=== PATIENT | male | born 1970 | race Caucasian/White ===

== ENCOUNTER 2017-05-21 12:58 | Inpatient (IN) | payer OTHER ==
[2017-05-21] MEDS ORDERED: SUCCINYLCHOLINE CHLORIDE 200 MG/10 ML VIAL IVP ONE (13:10)
[2017-05-21] MEDS ORDERED: ETOMIDATE 40 MG/20 ML INJ IVP ONE ×2 (13:11→13:18)
[2017-05-21 13:12] LABS: % IMMATURE GRANULYOCYTES 1.1 % (0.0-1.1); ADD DIFF? NO; ADD MORPH? NO; ADD SCAN? NO; ATYPICAL LYMPHOCYTE FLAG 0 (0-99); FRAGMENT RBC FLAG 0 (0-99); HEMATOCRIT 42.6 % (40.0-51.0); HEMOGLOBIN 14.6 g/dL (13.7-17.5); LEFT SHIFT FLG 0 (0-99); LIPEMIA HEMOLYSIS FLAG 90 (0-99); MEAN CELL HEMOGLOBIN 30.1 pg (27.9-34.1); MEAN CELL HEMOGLOBIN CONCENTR. 34.3 g/dL (32.4-36.7); MEAN CELL VOLUME 87.8 fL (81.5-99.8); MEAN PLATELET VOLUME 9.6 fL (8.7-11.7); PLATELET CLUMPS FLAG 0 (0-99); PLATELET COUNT 221 10^3/uL (150-400); RED BLOOD CELL COUNT 4.85 10^6/uL (4.40-6.38); RED CELL DISTRIBUTION WIDTH 12.8 % (11.5-15.2)
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
[2017-05-21 13:20] LABS: INR 1.44 (0.83-1.16); PROTIME(PATIENT) 17.7 SEC (12.0-15.0)
[2017-05-21 13:21] LABS: APTT 43.9 SEC (23.0-38.0)
[2017-05-21] MEDS ORDERED: THROMBIN (BOVINE) 20,000 UNIT VIAL TP ONE ×3 (13:21→17:04)
[2017-05-21] MEDS ORDERED: MANNITOL 25% 12.5 GM/50 ML VIAL IVP ONE (13:21)
[2017-05-21] MEDS ORDERED: BUPIVACAINE 0.25% 30 ML SDV ONE ×2 (13:21→17:01)
[2017-05-21] MEDS ORDERED: AVITENE POWDER 1 GM JAR TP ONE (13:21)
[2017-05-21] MEDS ORDERED: SURGIFLO MATRIX KIT WITH THROMBIN TP ONE ×3 (13:21→17:11)
[2017-05-21] MEDS ORDERED: GENTAMICIN SULFATE 80 MG/2 ML VIAL ONE ×4 (13:22→17:12)
[2017-05-21] MEDS ORDERED: MANNITOL 20% 100 GM/500 ML BAG IV ONE ×3 (13:22→17:02)
[2017-05-21] MEDS ORDERED: POVIDONE-IODINE 30 GM OINTTUBE TP ONE (13:23)
[2017-05-21] MEDS ORDERED: CHLORHEXIDINE GLUC HIBICLENS 118 ML BTL TP ONE (13:23)
[2017-05-21 13:30] LABS: ANION GAP 19 mEq/L (8-16); CARBON DIOXIDE 19 mEq/l (22-31); CHLORIDE 102 mEq/L (97-110); CREATININE 1.2 mg/dL (0.7-1.3); ETHANOL SERUM < 10 mg/dL (0-10); GLOMERULAR FILTRATION RATE > 60; GLUCOSE 191 mg/dL (70-100); POTASSIUM 3.4 mEq/L (3.5-5.2); SODIUM 140 mEq/L (134-144)
[2017-05-21] MEDS ORDERED: PROPOFOL/EMULSION 500 MG/50 ML BOTTLE IV ONE ×3 (13:33→16:38)
[2017-05-21] MEDS ORDERED: TDAP ADULT 0.5 ML INJ (BOOSTRIX) IM ONE (13:33)
[2017-05-21] MEDS ORDERED: fentaNYL 100 MCG/2 ML INJ ONE ×2 (13:45→16:39)
--- NOTE | 2017-05-21 13:46 | CPEKG ---
Heart Rate: 48 RR Interval: 1250 P-R Interval: 170 QRSD Interval: 112 QT Interval: 576 QTC Interval: 515 QRS [place]: 79 T Wave [place]: 62 EKG Severity - ABNORMAL ECG - EKG Impression: SINUS RHYTHM EKG Impression: NONSPECIFIC INTRAVENTRICULAR CONDUCTION DELAY EKG Impression: LEFT VENTRICULAR HYPERTROPHY EKG Impression: BORDERLINE INFERIOR Q WAVES EKG Impression: ANTEROLATERAL Q WAVES, PROBABLY DUE TO LVH Electronically Signed By: Jose Krishnan 21-May-2017 14:24:02
[2017-05-21] MEDS ORDERED: HYDROGEN PEROXIDE 236 ML BOTTLE TP ONE ×2 (14:02→17:02)
[2017-05-21] MEDS ORDERED: ceFAZolin 2 GM/SWFI 20 ML SYR IVP ONE (14:04)
[2017-05-21] MEDS ORDERED: NALOXONE HCL 0.4 MG/ML INJ IVP PRN ×2 (14:06→15:51)
[2017-05-21] MEDS ORDERED: LORazepam 2 MG/ML INJ IVP PRN (14:06)
[2017-05-21] MEDS ORDERED: levETIRAcetam 1,000 MG in NS 100 ML IV ONE (14:15)
[2017-05-21] MEDS ORDERED: LR 1,000 ML IV SCH (14:30)
[2017-05-21] MEDS ORDERED: *INFUSION*TRANEX ACID 1,000 MG/NS 100 ML IV ONE (14:30)
[2017-05-21] MEDS ORDERED: IOPAMIDOL (ISOVUE-300) 100 ML BTL ONE (14:40)
[2017-05-21] MEDS ORDERED: MIDAZOLAM 2 MG/2 ML VIAL ONE (14:55)
[2017-05-21] MEDS ORDERED: SUCCINYLCHOLINE CHLORIDE*ANESTHESIA ONLY*200 MG/10 ML SYR IVP ONE (14:56)
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
[2017-05-21] MEDS ORDERED: BACITRACIN ZINC 14.2 GM OINTTUBE TP ONE (15:35)
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
[2017-05-21] MEDS ORDERED: DEXAMETHASONE 4 MG/ML VIAL ONE (16:17)
[2017-05-21] MEDS ORDERED: RANITIDINE 50 MG/2 ML VIAL ONE (16:17)
[2017-05-21] MEDS ORDERED: ROCURONIUM 50 MG/5 ML VIAL ONE (16:17)
[2017-05-21] MEDS ORDERED: ROCURONIUM 100 MG/10 ML VIAL ONE (16:17)
[2017-05-21] MEDS ORDERED: LACTULOSE 20 GM/30 ML UDCUP PO PRN (16:45)
[2017-05-21] MEDS ORDERED: MAGNESIUM HYDROXIDE 30 ML UDCUP PO PRN (16:45)
[2017-05-21] MEDS ORDERED: BISACODYL 10 MG SUPP PR PRN (16:45)
[2017-05-21] MEDS ORDERED: POLYETHYLENE GLYCOL 3350 17 GM PKT PO PRN (16:45)
--- NOTE | 2017-05-21 16:45 | POSTOPPROG ---
Post Op Note Date of Operation: 05/21/17 Surgeon: Dagoberto Perdomo Hired Hand: Talib Strong MD, Bert Carolina PA-C, Henrry Uribe PA-C. Anesthesia: GET(General Endotracheal) Pre-op Diagnosis: TBI, SAH, SDH Post-op Diagnosis: TBI, SAH, SDH, Indication: SDH with cerebral compression Procedure: Left sided craniectomy Findings: SDH, SAH, See full op report Inf/Abcess present in the surg proc area at time of surgery?: No Depth: Organ Space EBL: 100-500 Drains: Jayesh Hunter, Other (EVD)
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
[2017-05-21 17:17] LABS: BASE EXCESS -6.2 mEq/L (-2.5-2.5); BICARBONATE 18 mEq/L (22-26); HEMOGLOBIN ABG 12.6 gm/dL (14.5-17.3); IONIZED CALCIUM 1.03 MMOL/L (1.12-1.30); MEASURED OXYGEN SATURATION 99 % (92-95); PCO2 35 mmHg (34-38); PO2 142 mmHg (65-75); SODIUM ABG 139 mEq/L (137-146); TCO2 19 mEq/L (23-27)
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
--- NOTE | 2017-05-21 17:47 | POSTOPPROG ---
Post Op Note Date of Operation: 05/21/17 Surgeon: Rodrigo Polanco Pre-op Diagnosis: Right traumatic pneumothorax Post-op Diagnosis: Right traumatic hemopneumothorax Findings: Good placement chest tube right pleural space Inf/Abcess present in the surg proc area at time of surgery?: No
[2017-05-21] MEDS ORDERED: MIDAZOLAM 2 MG/2 ML VIAL IVP ONE (18:11)
--- NOTE | 2017-05-21 18:19 | CPEKG ---
Heart Rate: 60 RR Interval: 1000 QRSD Interval: 106 QT Interval: 452 QTC Interval: 452 QRS Macdoel: 68 T Wave Macdoel: 59 EKG Severity - ABNORMAL ECG - EKG Impression: NSR with baseline artifact EKG Impression: LEFT VENTRICULAR HYPERTROPHY EKG Impression: BORDERLINE INFERIOR Q WAVES EKG Impression: ANTEROLATERAL INFARCT, RECENT Electronically Signed By: Jose Luis Ivory 22-May-2017 13:22:07
[2017-05-21] MEDS ORDERED: PROPOFOL/EMULSION 100 ML IV SCH (19:21)
[2017-05-21] MEDS ORDERED: PROPOFOL/EMULSION 1,000 MG/100 ML BOTTLE IV ONE (19:21)
[2017-05-21] MEDS ORDERED: fentanYL/NACL/100 ML BAG IV ONE (19:21)
[2017-05-21] MEDS: fentaNYL/NACL 100 ML IV SCH (19:24)
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
[2017-05-21] MEDS: FAMOTIDINE 20 MG/NACL 50 ML IV SCH (20:31)
[2017-05-21] MEDS: niCARdipine/NACL 200 ML IV PRN (20:31)
[2017-05-21] MEDS ORDERED: levETIRAcetam 500 MG in NS 100 ML IV SCH (21:00)
[2017-05-21] MEDS: NS 1,000 ML IV SCH (21:30)
[2017-05-21 21:41] LABS: BASE EXCESS -6.4 mEq/L (-2.5-2.5); BICARBONATE 17 mEq/L (22-26); MEASURED OXYGEN SATURATION 100 % (92-95); PCO2 30 mmHg (34-38); PO2 266 mmHg (65-75); TCO2 18 mEq/L (23-27)
[2017-05-21 21:43] LABS: END TIDAL CO2 23; O2 CONCENTRATIION 100 % (0-100); P/F RATIO 266 RATIO; SIMV YES
[2017-05-21 21:44] LABS: PATIENT RATE 22; PRESSURE SUPPORT 7
[2017-05-21] MEDS: SENNOSIDES/DOCUSATE SODIUM TAB PO SCH (21:51)
[2017-05-21 22:09] LABS: ALANINE AMINOTRANSFERASE 41 IU/L (21-72); ALBUMIN 4.1 g/dL (3.5-5.0); ALKALINE PHOSPHATASE 56 IU/L (38-126); ANION GAP 18 mEq/L (8-16); ASPARTATE AMINOTRANSFERASE 81 IU/L (17-59); BILIRUBIN,TOTAL 1.1 mg/dL (0.1-1.4); BILIRUBIN-UNCONJUGATED 1.1 mg/dL (0.0-1.1); CALCIUM 8.8 mg/dL (8.5-10.4); CARBON DIOXIDE 17 mEq/l (22-31); CHLORIDE 105 mEq/L (97-110); CREATININE 0.9 mg/dL (0.7-1.3); GLOMERULAR FILTRATION RATE > 60; GLUCOSE 225 mg/dL (70-100); SODIUM 140 mEq/L (134-144); TOTAL PROTEIN 6.4 g/dL (6.3-8.2)
[2017-05-21] MEDS: levETIRAcetam 1,000 MG in NS 100 ML IV SCH (22:36)
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
[2017-05-22] MEDS ORDERED: ACETAMINOPHEN 650 MG SUPP PR ONE (01:09)
[2017-05-22] MEDS ORDERED: ACETAMINOPHEN 650 MG SUPP PR PRN (01:13)
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
[2017-05-22] MEDS: niCARdipine/NACL 200 ML IV PRN ×3 (03:01→17:38)
[2017-05-22] MEDS: NS 1,000 ML IV SCH ×3 (03:03→18:49)
[2017-05-22] MEDS ORDERED: ACETAMINOPHEN 650 MG SUPP PR SCH ×2 (08:45→14:00)
[2017-05-22] MEDS ORDERED: ACETAMINOPHEN 325 MG SUPP PR SCH (08:51)
[2017-05-22] MEDS: SENNOSIDES/DOCUSATE SODIUM TAB PO SCH ×2 (08:59→23:02)
[2017-05-22] MEDS: levETIRAcetam 1,000 MG in NS 100 ML IV SCH ×2 (08:59→23:02)
--- NOTE | 2017-05-22 09:05 | TRAUMAPN ---
- Problem/Surgery Performed (1) Intracranial injury with loss of consciousness Assessment/Plan: 05/22 POD/PAD #1 Assessment: Pupils (L) 2mm, (R) 4 mm , both non reactive, responds to oral swabbing with slight withdrawal, responds to toenail pressure with withdrawal but no other response. Positive left but negative right corneal reflex. Large urine output over night(1000cc) but that has slowed down (300cc last 4hours) but IV fluids at 150. S/P decompressive craniectomy for increased ICP with SAH, SDH and possible transtentorial herniation. ICP now 32. Plan: Tx HTN, Head of bed elevated. Neurosurgery has indicated that there is no further intervention indicated and brain expected. Will continue to reassess Qualifiers: Encounter type: subsequent encounter Qualified Code(s): S06.9X9D - Unspecified intracranial injury with loss of consciousness of unspecified duration, subsequent encounter Assessment/Plan: Probably this will prove to be a nonsurvivable injury Subjective: Proceeding with evaluation for brain Objective: Vital Signs Temp Pulse Resp BP Pulse Ox 37.4 C 58 L 16 133/61 H 100 05/22/17 07:00 05/22/17 08:09 05/22/17 08:09 05/22/17 08:00 05/22/17 08:09 Microbiology 05/21/17 15:10 Gram Stain - Final Scalp - Eswab Laboratory Results 05/21/17 21:30 05/21/17 05/22/17 05/23/17 05:59 05:59 05:59 Intake Total 1913 Output Total 2982 39 Balance -1069 -39 PT 17.7 SEC (12.0-15.0) H 05/21/17 13:00 INR 1.44 (0.83-1.16) H 05/21/17 13:00 Physical Exam - Physical Exam General Appearance: unresponsive (except as noted above) EENT: anisocoria (Left 2 mm, right 4 mm, both non reactive) Neck: other (In C-collar ) Respiratory: chest non-tender, lungs clear, normal breath sounds (on ventilator , no response to deep suctioning, Chest tube in place with no air leak) Cardiac/Chest: regular rate, rhythm Abdomen: non-tender, soft Male Genitalia: deferred Rectal: deferred Skin: normal color, warm/dry Neuro/Psych: other (Intubated, No response to commands, no spontaneous movement , Slight left corneal reflex, Will breath off ventilator, Responsive only to nailbed pressure on toes and oral swabbing.) Time Spent w/Patient (minutes): 40
[2017-05-22] MEDS: ACETAMINOPHEN 650 MG SUPP PR SCH ×3 (09:26→23:03)
[2017-05-22] MEDS: FAMOTIDINE 20 MG/NACL 50 ML IV SCH ×2 (09:27→23:02)
[2017-05-22 09:39] LABS: BASE EXCESS -1.1 mEq/L (-2.5-2.5); BICARBONATE 23 mEq/L (22-26); MEASURED OXYGEN SATURATION 99 % (92-95); PCO2 39 mmHg (34-38); PO2 136 mmHg (65-75); TCO2 24 mEq/L (23-27)
[2017-05-22 09:40] LABS: % IMMATURE GRANULYOCYTES 0.2 % (0.0-1.1); ABSOLUTE IMMATURE GRANULOCYTES 0.03 10^3/uL (0.00-0.10); ADD DIFF? NO; ADD MORPH? NO; ADD SCAN? YES; ASSIST CONTROL YES; ATYPICAL LYMPHOCYTE FLAG 0 (0-99); FRAGMENT RBC FLAG 0 (0-99); HEMATOCRIT 33.3 % (40.0-51.0); HEMOGLOBIN 11.9 g/dL (13.7-17.5); LIPEMIA HEMOLYSIS FLAG 90 (0-99); MEAN CELL HEMOGLOBIN 29.8 pg (27.9-34.1); MEAN CELL HEMOGLOBIN CONCENTR. 35.7 g/dL (32.4-36.7); MEAN CELL VOLUME 83.5 fL (81.5-99.8); MEAN PLATELET VOLUME 9.6 fL (8.7-11.7); PLATELET CLUMPS FLAG 0 (0-99); PLATELET COUNT 100 10^3/uL (150-400); RED BLOOD CELL COUNT 3.99 10^6/uL (4.40-6.38); RED CELL DISTRIBUTION WIDTH 14.3 % (11.5-15.2)
[2017-05-22 09:41] LABS: O2 CONCENTRATIION 70 % (0-100); P/F RATIO 194 RATIO; TOTAL RATE 16
[2017-05-22 09:46] LABS: LEFT SHIFT FLG 100 (0-99)
[2017-05-22 09:49] LABS: INR 1.53 (0.83-1.16); PROTIME(PATIENT) 18.5 SEC (12.0-15.0)
[2017-05-22 10:09] LABS: ALANINE AMINOTRANSFERASE 44 IU/L (21-72); ALBUMIN 3.2 g/dL (3.5-5.0); ALKALINE PHOSPHATASE 36 IU/L (38-126); ANION GAP 12 mEq/L (8-16); ASPARTATE AMINOTRANSFERASE 65 IU/L (17-59); BILIRUBIN,TOTAL 0.9 mg/dL (0.1-1.4); CALCIUM 8.2 mg/dL (8.5-10.4); CARBON DIOXIDE 23 mEq/l (22-31); CHLORIDE 108 mEq/L (97-110); CREATININE 0.7 mg/dL (0.7-1.3); GLOMERULAR FILTRATION RATE > 60; GLUCOSE 148 mg/dL (70-100); MAGNESIUM 1.7 mg/dL (1.6-2.3); POTASSIUM 3.9 mEq/L (3.5-5.2); SODIUM 143 mEq/L (134-144); TOTAL PROTEIN 5.4 g/dL (6.3-8.2)
[2017-05-22 10:36] LABS: SCAN POSITIVE
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
[2017-05-22 11:08] LABS: PLATELET ESTIMATE DECREASED (ADEQ)
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
[2017-05-22 15:04] VITALS: O2SAT 100
[2017-05-22] MEDS: fentaNYL/NACL 100 ML IV SCH (16:48)
[2017-05-22 17:27] VITALS: RESP 16
[2017-05-22 17:54] LABS: % IMMATURE GRANULYOCYTES 0.3 % (0.0-1.1); ABSOLUTE IMMATURE GRANULOCYTES 0.04 10^3/uL (0.00-0.10); ADD DIFF? NO; ADD MORPH? NO; ADD SCAN? NO; ATYPICAL LYMPHOCYTE FLAG 0 (0-99); BASE EXCESS -0.1 mEq/L (-2.5-2.5); BICARBONATE 24 mEq/L (22-26); FRAGMENT RBC FLAG 0 (0-99); HEMATOCRIT 31.7 % (40.0-51.0); HEMOGLOBIN 11.3 g/dL (13.7-17.5); LEFT SHIFT FLG 90 (0-99); LIPEMIA HEMOLYSIS FLAG 90 (0-99); MEAN CELL HEMOGLOBIN 29.9 pg (27.9-34.1); MEAN CELL HEMOGLOBIN CONCENTR. 35.6 g/dL (32.4-36.7); MEAN CELL VOLUME 83.9 fL (81.5-99.8); MEAN PLATELET VOLUME 9.6 fL (8.7-11.7); MEASURED OXYGEN SATURATION 100 % (92-95); PCO2 38 mmHg (34-38); PLATELET CLUMPS FLAG 0 (0-99); PLATELET COUNT 96 10^3/uL (150-400); PO2 250 mmHg (65-75); RED BLOOD CELL COUNT 3.78 10^6/uL (4.40-6.38); RED CELL DISTRIBUTION WIDTH 14.2 % (11.5-15.2); TCO2 25 mEq/L (23-27)
[2017-05-22 17:55] LABS: ASSIST CONTROL YES; END TIDAL CO2 28; O2 CONCENTRATIION 100 % (0-100); P/F RATIO 250 RATIO
[2017-05-22 18:07] LABS: INR 1.71 (0.83-1.16); PROTIME(PATIENT) 20.2 SEC (12.0-15.0)
[2017-05-22 18:08] LABS: APTT 33.4 SEC (23.0-38.0)
[2017-05-22 18:29] LABS: ALANINE AMINOTRANSFERASE 43 IU/L (21-72); ALKALINE PHOSPHATASE 40 IU/L (38-126); ANION GAP 9 mEq/L (8-16); ASPARTATE AMINOTRANSFERASE 67 IU/L (17-59); BILIRUBIN,TOTAL 0.9 mg/dL (0.1-1.4); BILIRUBIN-UNCONJUGATED 0.9 mg/dL (0.0-1.1); CALCIUM 8.4 mg/dL (8.5-10.4); CARBON DIOXIDE 25 mEq/l (22-31); CHLORIDE 107 mEq/L (97-110); CREATININE 0.7 mg/dL (0.7-1.3); GAMMA-GLUTAMYLTRANSFERASE 10 IU/L (10-59); GLOMERULAR FILTRATION RATE > 60; GLUCOSE 123 mg/dL (70-100); LACTATE DEHYDROGENASE 942 IU/L (313-618); MAGNESIUM 1.8 mg/dL (1.6-2.3); POTASSIUM 3.7 mEq/L (3.5-5.2); SODIUM 141 mEq/L (134-144); TOTAL PROTEIN 5.2 g/dL (6.3-8.2)
[2017-05-22 18:40] LABS: COLOR YELLOW; LEUKOCYTE ESTERASE,URINE NEGATIVE (NEGATIVE); NITRITE,URINE NEGATIVE (NEGATIVE)
[2017-05-22 18:43] LABS: MUCUS TRACE /lpf (NONE-1+)
[2017-05-22] MEDS ORDERED: PROTOCOL MAGNESIUM 1 DOSE IV PRN (19:59)
[2017-05-22] MEDS ORDERED: PROTOCOL K PHOSPHATE 1 DOSE IV PRN (19:59)
[2017-05-22] MEDS ORDERED: PROTOCOL POTASSIUM 1 DOSE MISC PRN (19:59)
[2017-05-22] MEDS ORDERED: PROTOCOL CALCIUM 1 DOSE IV PRN (19:59)
[2017-05-22] MEDS ORDERED: POTASSIUM Cl (KCl) 50 ML IV ONE (21:59)
[2017-05-22] MEDS ORDERED: POTASSIUM Cl (KCl) 20 MEQ in NS 50 ML IV ONE (23:15)
[2017-05-23 00:35] LABS: INR 1.68 (0.83-1.16); PROTIME(PATIENT) 19.9 SEC (12.0-15.0)
[2017-05-23 00:36] LABS: APTT 33.6 SEC (23.0-38.0)
[2017-05-23 00:37] LABS: % IMMATURE GRANULYOCYTES 0.2 % (0.0-1.1); ABSOLUTE IMMATURE GRANULOCYTES 0.03 10^3/uL (0.00-0.10); ADD DIFF? NO; ADD MORPH? NO; ADD SCAN? NO; ATYPICAL LYMPHOCYTE FLAG 0 (0-99); FRAGMENT RBC FLAG 0 (0-99); HEMATOCRIT 30.8 % (40.0-51.0); HEMOGLOBIN 10.5 g/dL (13.7-17.5); LEFT SHIFT FLG 70 (0-99); LIPEMIA HEMOLYSIS FLAG 90 (0-99); MEAN CELL HEMOGLOBIN 28.9 pg (27.9-34.1); MEAN CELL HEMOGLOBIN CONCENTR. 34.1 g/dL (32.4-36.7); MEAN CELL VOLUME 84.8 fL (81.5-99.8); MEAN PLATELET VOLUME 10.3 fL (8.7-11.7); PLATELET CLUMPS FLAG 10 (0-99); PLATELET COUNT 101 10^3/uL (150-400); RED BLOOD CELL COUNT 3.63 10^6/uL (4.40-6.38); RED CELL DISTRIBUTION WIDTH 14.2 % (11.5-15.2)
[2017-05-23 00:46] LABS: ALANINE AMINOTRANSFERASE 44 IU/L (21-72); ALBUMIN 2.8 g/dL (3.5-5.0); ALKALINE PHOSPHATASE 38 IU/L (38-126); ANION GAP 7 mEq/L (8-16); ASPARTATE AMINOTRANSFERASE 68 IU/L (17-59); BILIRUBIN-CONJUGATED 0.1 mg/dL (0.0-0.5); BILIRUBIN-UNCONJUGATED 0.9 mg/dL (0.0-1.1); CALCIUM 8.6 mg/dL (8.5-10.4); CARBON DIOXIDE 27 mEq/l (22-31); CHLORIDE 110 mEq/L (97-110); CREATININE 0.7 mg/dL (0.7-1.3); GLOMERULAR FILTRATION RATE > 60; GLUCOSE 126 mg/dL (70-100); POTASSIUM 4.1 mEq/L (3.5-5.2); SODIUM 144 mEq/L (134-144); TOTAL PROTEIN 5.3 g/dL (6.3-8.2)
[2017-05-23] MEDS: ACETAMINOPHEN 650 MG SUPP PR SCH ×2 (06:31→14:00)
[2017-05-23 06:33] LABS: BASE EXCESS 0.4 mEq/L (-2.5-2.5); BICARBONATE 24 mEq/L (22-26); MEASURED OXYGEN SATURATION 99 % (92-95); PCO2 39 mmHg (34-38); PO2 143 mmHg (65-75); TCO2 26 mEq/L (23-27)
[2017-05-23 06:36] LABS: % IMMATURE GRANULYOCYTES 0.2 % (0.0-1.1); ABSOLUTE IMMATURE GRANULOCYTES 0.03 10^3/uL (0.00-0.10); ADD DIFF? NO; ADD MORPH? NO; ADD SCAN? NO; ATYPICAL LYMPHOCYTE FLAG 0 (0-99); COLOR YELLOW; FRAGMENT RBC FLAG 0 (0-99); HEMATOCRIT 29.6 % (40.0-51.0); HEMOGLOBIN 10.5 g/dL (13.7-17.5); LEFT SHIFT FLG 70 (0-99); LEUKOCYTE ESTERASE,URINE NEGATIVE (NEGATIVE); LIPEMIA HEMOLYSIS FLAG 90 (0-99); MEAN CELL HEMOGLOBIN 30.1 pg (27.9-34.1); MEAN CELL HEMOGLOBIN CONCENTR. 35.5 g/dL (32.4-36.7); MEAN CELL VOLUME 84.8 fL (81.5-99.8); MEAN PLATELET VOLUME 9.9 fL (8.7-11.7); NITRITE,URINE NEGATIVE (NEGATIVE); PLATELET CLUMPS FLAG 0 (0-99); PLATELET COUNT 95 10^3/uL (150-400); RED BLOOD CELL COUNT 3.49 10^6/uL (4.40-6.38); RED CELL DISTRIBUTION WIDTH 14.1 % (11.5-15.2)
[2017-05-23 06:43] LABS: MUCUS TRACE /lpf (NONE-1+)
[2017-05-23 06:46] LABS: INR 1.51 (0.83-1.16); PROTIME(PATIENT) 18.4 SEC (12.0-15.0)
[2017-05-23 06:47] LABS: APTT 35.3 SEC (23.0-38.0)
[2017-05-23 07:15] LABS: ALANINE AMINOTRANSFERASE 44 IU/L (21-72); ALBUMIN 2.8 g/dL (3.5-5.0); ALKALINE PHOSPHATASE 43 IU/L (38-126); ANION GAP 7 mEq/L (8-16); ASPARTATE AMINOTRANSFERASE 63 IU/L (17-59); BILIRUBIN,TOTAL 0.9 mg/dL (0.1-1.4); BILIRUBIN-CONJUGATED 0.2 mg/dL (0.0-0.5); BILIRUBIN-UNCONJUGATED 0.7 mg/dL (0.0-1.1); CALCIUM 8.7 mg/dL (8.5-10.4); CARBON DIOXIDE 27 mEq/l (22-31); CHLORIDE 109 mEq/L (97-110); CREATININE 0.8 mg/dL (0.7-1.3); GLOMERULAR FILTRATION RATE > 60; GLUCOSE 122 mg/dL (70-100); MAGNESIUM 2.2 mg/dL (1.6-2.3); POTASSIUM 4.1 mEq/L (3.5-5.2); SODIUM 143 mEq/L (134-144); TOTAL PROTEIN 5.3 g/dL (6.3-8.2)
[2017-05-23] MEDS: levETIRAcetam 1,000 MG in NS 100 ML IV SCH (09:00)
[2017-05-23] MEDS: FAMOTIDINE 20 MG/NACL 50 ML IV SCH (09:00)
[2017-05-23] MEDS: SENNOSIDES/DOCUSATE SODIUM TAB PO SCH (09:45)
--- NOTE | 2017-05-23 10:25 | TRAUMAPN ---
- Problem/Surgery Performed (1) Intracranial injury with loss of consciousness Assessment/Plan: 05/22 POD/PAD #1 Assessment: Pupils (L) 2mm, (R) 4 mm , both non reactive, responds to oral swabbing with slight withdrawal, responds to toenail pressure with withdrawal but no other response. Positive left but negative right corneal reflex. Large urine output over night(1000cc) but that has slowed down (300cc last 4hours) but IV fluids at 150. S/P decompressive craniectomy for increased ICP with SAH, SDH and possible transtentorial herniation. ICP now 32. Plan: Tx HTN, Head of bed elevated. Neurosurgery has indicated that there is no further intervention indicated and brain expected. Will continue to reassess Qualifiers: Encounter type: subsequent encounter Qualified Code(s): S06.9X9D - Unspecified intracranial injury with loss of consciousness of unspecified duration, subsequent encounter Assessment/Plan: 05/22/2017 Probably this will prove to be a nonsurvivable injury 05/23/2017 Patient is not yet brain but his injury is deemed nonsurvivable by neurosurgery. Family has decided to withdraw care. Donor [place] is involved (per patient's previously indicated wishes). Plan: Awaiting designation of a harvest surgeon. Will take patient to OR and extubate. If occurs within 60-90 minutes, kidney harvest will proceed. If he does not in that time frame, he will be brought back to the ICU for comfort care until he does . Subjective: intubated, nonresponsive except to some painful stimuli. Objective: Vital Signs Temp Pulse Resp BP Pulse Ox 37.3 C 86 16 144/62 H 100 05/23/17 08:00 05/23/17 09:00 05/23/17 09:00 05/23/17 09:00 05/23/17 09:00 Microbiology 05/21/17 15:10 Gram Stain - Final Scalp - Eswab Laboratory Results 05/23/17 06:00 05/23/17 06:00 05/22/17 05/23/17 05/24/17 05:59 05:59 05:59 Intake Total 3823 2238 Output Total 0389 6478 433 Balance -1069 -562 -433 PT 18.4 SEC (12.0-15.0) H 05/23/17 06:00 INR 1.51 (0.83-1.16) H 05/23/17 06:00 - C-Spine Clearance Cervical Spine Cleared: Yes Provider who Cleared Cervical Spine: Sam (by CT) Physical Exam - Physical Exam General Appearance: unresponsive EENT: other (Right pupil still larger than left, No corneal reflex today but did react to elevatiion of left eyelid) Neck: other (Collar removed yesterday (CT negative) for comfort measures) Respiratory: lungs clear, normal breath sounds, other (On ventilator) Cardiac/Chest: regular rate, rhythm Abdomen: non-tender, soft, other (He did tense abdomen when sheets drawn back to expose abdomen) Male Genitalia: deferred Rectal: deferred Skin: normal color, warm/dry Neuro/Psych: other (Corneal reflex now abscent, does respond to elevation of left eyelid and exposure of abdomen.) Time Spent w/Patient (minutes): 35 (and Donor [place])
[2017-05-23] MEDS ORDERED: HEPARIN 10,000 UNIT/10 ML MDV IVP ONE ×2 (10:32→14:45)
[2017-05-23] MEDS: fentaNYL/NACL 100 ML IV SCH (10:50)
[2017-05-23] MEDS: niCARdipine/NACL 200 ML IV PRN (10:50)
[2017-05-23 12:12] LABS: IONIZED CALCIUM 1.18 MMOL/L (1.12-1.30)
[2017-05-23 12:13] LABS: % IMMATURE GRANULYOCYTES 0.2 % (0.0-1.1); ABSOLUTE IMMATURE GRANULOCYTES 0.02 10^3/uL (0.00-0.10); ADD DIFF? NO; ADD MORPH? NO; ADD SCAN? NO; ATYPICAL LYMPHOCYTE FLAG 0 (0-99); FRAGMENT RBC FLAG 0 (0-99); HEMATOCRIT 28.9 % (40.0-51.0); HEMOGLOBIN 10.2 g/dL (13.7-17.5); LEFT SHIFT FLG 80 (0-99); LIPEMIA HEMOLYSIS FLAG 90 (0-99); MEAN CELL HEMOGLOBIN CONCENTR. 35.3 g/dL (32.4-36.7); MEAN PLATELET VOLUME 9.6 fL (8.7-11.7); PLATELET CLUMPS FLAG 0 (0-99); PLATELET COUNT 97 10^3/uL (150-400); RED CELL DISTRIBUTION WIDTH 14.1 % (11.5-15.2)
[2017-05-23 12:20] LABS: INR 1.45 (0.83-1.16); PROTIME(PATIENT) 17.8 SEC (12.0-15.0)
[2017-05-23 12:21] LABS: APTT 34.2 SEC (23.0-38.0)
[2017-05-23 12:31] LABS: ALANINE AMINOTRANSFERASE 40 IU/L (21-72); ALBUMIN 2.7 g/dL (3.5-5.0); ALKALINE PHOSPHATASE 44 IU/L (38-126); ANION GAP 6 mEq/L (8-16); ASPARTATE AMINOTRANSFERASE 59 IU/L (17-59); BILIRUBIN,TOTAL 0.9 mg/dL (0.1-1.4); BILIRUBIN-CONJUGATED 0.2 mg/dL (0.0-0.5); BILIRUBIN-UNCONJUGATED 0.7 mg/dL (0.0-1.1); CALCIUM 8.7 mg/dL (8.5-10.4); CARBON DIOXIDE 28 mEq/l (22-31); CHLORIDE 109 mEq/L (97-110); CREATININE 0.7 mg/dL (0.7-1.3); GLOMERULAR FILTRATION RATE > 60; GLUCOSE 125 mg/dL (70-100); MAGNESIUM 2.2 mg/dL (1.6-2.3); POTASSIUM 3.9 mEq/L (3.5-5.2); SODIUM 143 mEq/L (134-144); TOTAL PROTEIN 5.3 g/dL (6.3-8.2)
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
[2017-05-23 14:03] VITALS: TEMP 99.1
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
[2017-05-23] MEDS ORDERED: HEPARIN 10,000 UNIT/10 ML MDV ONE (14:44)
[2017-05-23 15:09] VITALS: BP 139/62; PULSE 86
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
== END 2017-05-23 16:49 | disposition expired | DRG 955 ==
LOC: EDBD 12:58 → F2N 17:29
PROVIDERS: ADMIT Surgery; ATTEND Surgery
PROC: 5A1945Z Respiratory Ventilation, 24-96 Consecutive Hours (ICD-10-PCS; 2017-05-21)
PROC: 0BH17EZ Insertion of Endotracheal Airway into Trachea, Via Natural or Artificial Opening (ICD-10-PCS; 2017-05-21)
PROC: 0W9930Z Drainage of Right Pleural Cavity with Drainage Device, Percutaneous Approach (ICD-10-PCS; 2017-05-21)
PROC: 30233L1 Transfusion of Nonautologous Fresh Plasma into Peripheral Vein, Percutaneous Approach (ICD-10-PCS; 2017-05-21)
PROC: 30233M1 Transfusion of Nonautologous Plasma Cryoprecipitate into Peripheral Vein, Percutaneous Approach (ICD-10-PCS; 2017-05-21)
PROC: 009400Z Drainage of Intracranial Subdural Space with Drainage Device, Open Approach (ICD-10-PCS; principal; 2017-05-21 13:45)
PROC: 009 Central Nervous System and Cranial Nerves, Drainage (ICD-10-PCS; principal; 2017-05-21 13:45)
DX: S02.109A Fracture of base of skull, unspecified side, initial encounter for closed fracture; R40.2432 Glasgow coma scale score 3-8, at arrival to emergency department; S27.0XXA Traumatic pneumothorax, initial encounter; S27.322A Contusion of lung, bilateral, initial encounter; S22.41XA Multiple fractures of ribs, right side, initial encounter for closed fracture; S42.101A Fracture of unspecified part of scapula, right shoulder, initial encounter for closed fracture; S42.001A Fracture of unspecified part of right clavicle, initial encounter for closed fracture; S02.81XA Fracture of other specified skull and facial bones, right side, initial encounter for closed fracture; S02.2XXA Fracture of nasal bones, initial encounter for closed fracture; V19.9XXA Pedal cyclist (driver) (passenger) injured in unspecified traffic accident, initial encounter; Y92.410 Unspecified street and highway as the place of occurrence of the external cause; Y93.55 Activity, bike riding
CPT/HCPCS: 82947-QW; C1729; G0480; J0171; J0330; J0690; J1100; J1644; J1953; J2250; J2704; J2780; J3010; P9012; P9016; P9017; Q9967

== ENCOUNTER → 2017-05-23 16:49 | Inpatient (IN) | payer OTHER ==
--- NOTE | 2017-05-28 08:21 | CPEKG ---
Heart Rate: 54 RR Interval: 1111 QRSD Interval: 174 QT Interval: 588 QTC Interval: 558 QRS [place]: 3 T Wave [place]: 94 EKG Severity - ABNORMAL ECG - EKG Impression: Sinus rhythm with competing junctional rhythm EKG Impression: LEFT BUNDLE BRANCH BLOCK is new compared to ECG at 1818 hrs, LBBB is present EKG Impression: only during junctional rhythm Electronically Signed By: Cipriano Marques 28-May-2017 17:10:39
== END | disposition expired | DRG 951 ==
LOC: F2N 16:49
PROVIDERS: ADMIT Surgery; ATTEND Surgery
DX: Z52.9 Donor of unspecified organ or tissue (principal)